=== PATIENT | male | born 1985 | race American Indian/Alaskan Native ===

== ENCOUNTER 2018-06-17 20:48 | Emergency (ER) | payer OTHER ==
[2018-06-17] MEDS ORDERED: Iopamidol 755 Mg/ML 200 ML Bottle IV ONE (21:43)
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
--- NOTE | 2018-06-20 09:06 | CT ---
Head CT Technique: Multiple axial sections through the brain were obtained. Intravenous contrast was not utilized. Comparison: No previous intracranial imaging is available. Findings: Ventricles along with basal cisterns and sulci over the convexities are within normal limits for the patient's age. Slightly prominent CSF space noted within the anterior left temporal fossa most likely due to small and incidental arachnoid cyst. No abnormal parenchymal densities are seen. No evidence of intracranial hemorrhage. No midline shift or mass effect is seen. Bone window settings were reviewed which show a nasal bone fracture, this is most likely old. Mild areas of mucosal thickening noted within the maxillary and ethmoid sinuses. No acute calvarial abnormality is seen. Impression: 1. Nasal bone fracture most likely old. Please correlate that patient has no acute nasal bone symptoms. 2. Other incidental findings. Nothing acute is appreciated on noncontrast head CT study. Diagnostic code #2 I agree with preliminary report from [facility], finalized on 06/17/18, 10:45 PM Central Time
--- NOTE | 2018-06-20 09:33 | CT ---
CT chest Technique: Multiple axial sections through the chest were obtained. Intravenous contrast was utilized. Contrast enhancement of the great vessels is less than optimal. Comparison: No prior chest imaging. Findings: Mediastinum and hilar regions appear within normal limits. No pericardial thickening or pericardial effusion is seen. No axillary adenopathy is seen. Lungs are clear. No pulmonary contusion is seen. No pneumothorax or pleural effusions are identified. Bone window settings were reviewed which show no acute rib fracture. Degenerative change is noted within the lower thoracic spine with disc space narrowing and vacuum phenomena. Impression: 1. Degenerative change within the lumbar spine. 2. Nothing acute is identified on CT study of the chest. Diagnostic code #2 I agree with preliminary report from [employer], finalized on 06/17/18, 10:[address] abdomen and pelvis Technique: Multiple axial sections were obtained from above the dome of the diaphragm inferiorly through the pubic symphysis. Intravenous contrast was utilized. No oral contrast was given. Detail slightly limited due to patient body habitus. Comparison: No prior abdominal imaging. Findings: Liver shows fatty infiltration. No focal abnormality is appreciated. Spleen appears within normal limits. Adrenal glands show no nodule. Kidneys show symmetric contrast enhancement without hydronephrosis or mass. Haziness noted around the pancreas but no discrete pancreatic laceration is appreciated. Kidneys show symmetric contrast enhancement without abnormality. Aorta shows no aneurysm. No retroperitoneal adenopathy or mesenteric abnormalities are seen. No pelvic mass or adenopathy is seen. Bone window settings shows degenerative change within the lumbar spine. No acute osseous abnormality is seen. Impression: 1. Haziness around the pancreas. No discrete pancreatic injury is identified. Please correlate with pancreatic enzymes and if normal, this finding can be ignored. If pancreatic enzymes are abnormal, follow-up study could be considered in 48-72 hours. 2. Fatty infiltration within the liver. 3. Other incidental findings. Nothing acute is otherwise seen on CT study of the abdomen and pelvis. Diagnostic code #3 I agree with preliminary report from [employer], finalized on 06/17/18, 10:51 PM Central Time
--- NOTE | 2018-06-20 09:46 | CT ---
CT cervical spine Technique: Multiple axial sections were obtained from above C1 inferiorly to the top of T2. Reconstructed sagittal and coronal images were reviewed. Limitations: Artifact secondary to patient body size. Findings: Vertebral body heights and disc spaces are maintained. Small bony density seen next to the posterior arch of C1 which appears old and incidental. Vertebral bodies and posterior arches show no discrete fracture. No bony central or bony neural foraminal stenosis is seen. No abnormal subluxation is seen. Impression: 1. Limited study due to artifact from patient body habitus. No gross abnormality is appreciated. Diagnostic code #2 I agree with preliminary report from [facility], finalized on 06/17/18, 10:55 PM Central Time
== END 2018-06-17 23:40 | disposition home or self-care (01) ==
LOC: JD.ED 20:48
DX: S20.211A Contusion of right front wall of thorax, initial encounter (principal); S30.1XXA Contusion of abdominal wall, initial encounter; S16.1XXA Strain of muscle, fascia and tendon at neck level, initial encounter; F10.920 Alcohol use, unspecified with intoxication, uncomplicated; V43.63XA Car passenger injured in collision with pick-up truck in traffic accident, initial encounter; Y90.8 Blood alcohol level of 240 mg/100 ml or more
CPT/HCPCS: 36415; 70450; 71260; 72125; 74177; 80053; 83690; 85025; 85610; 99284; G0480; Q9967